=== PATIENT | male | born 1970 | race Caucasian/White ===

== ENCOUNTER 2018-01-08 10:35 | Emergency (ER) | payer SELFPAY ==
--- NOTE | 2018-01-08 11:22 | ED Physician Documentation ---
General Adult - HISTORIAN Historian: patient - HPI Stated Complaint: facial swelling Chief Complaint: General Adult Further Comments: yes (47 year old male patient presents with complaints of eyes and face swelling. Patient states he woke up yesterday with facial swelling and took benadryl, which helped. Denies any new soaps, lotions, shampoo, foods or exposure to chemicals.) - ROS CONST: no problems EYES/ENT: none CVS/RESP: none GI/: none MS/SKIN/LYMPH: none NEURO/PSYCH: denies: headache - PAST HX Past History: none Other History: none Immunizations: UTD Allergies/Adverse Reactions: Allergies Allergy/AdvReac Type Severity Reaction Status Date / Time codeine Allergy Verified 01/08/18 11:02 Home Medications: Ambulatory Orders Medication Instructions Recorded NK [NK] 01/08/18 - SOCIAL HX Smoking History: cigarettes - FAMILY HX Family History: No - VITAL SIGNS Vital Signs: Vital Signs Temp Pulse Resp BP Pulse Ox 97.9 F 58 L 18 141/78 98 01/08/18 10:57 01/08/18 10:57 01/08/18 10:57 01/08/18 10:57 01/08/18 10:57 - REVIEWED ASSESSMENTS Nursing Assessment Reviewed: Yes Vitals Reviewed: Yes General Adult Physical Exam - PHYSICAL EXAM GENERAL APPEARANCE: mild distress EENT: eye inspection normal, ENT inspection normal, pharynx normal, no signs of dehydration, TERA, no nystagmus, TM's nml, other (mild edema noted in eye lids.) RESPIRATORY: no resp distress, chest non-tender, breath sounds normal CVS: reg rate & rhythm, heart sounds normal, equal pulses, no murmur, no gallop , PMI nml, no JVD, no friction rub, 24 SKIN: normal color, warm/dry, NR, INT, PAL, DR EXTREMITIES: non-tender, normal range of motion, no evidence of injury, no edema , J, [employer] NEURO: oriented X3, CN's nml as tested, motor nml, sensation nml, mood/affect nml Discharge Clincal Impression: Seasonal allergic rhinitis Qualifiers: Allergic rhinitis trigger: unspecified Qualified Code(s): J30.2 - Other seasonal allergic rhinitis Referrals: Primary Doctor,No [Primary Care Provider] - 2 Days Additional Instructions: daily claritan until symptoms resolve. Ice to eyes as needed for edema Visine or saline drops as needed for irrigation and itching. Benadryl 25-50mg every 6 hours as needed for allergy symptoms. Condition: Stable Disposition: 01 HOME, SELF-CARE Decision to Admit: NO Decision Time: 11:21
[2018-01-08 11:34] VITALS: BP 136/74
== END 2018-01-08 11:29 | disposition home or self-care (01) ==
LOC: ED 10:35
DX: J30.2 Other seasonal allergic rhinitis (principal)
CPT/HCPCS: 99282